=== PATIENT | female | born 1960 | race Caucasian/White ===

== ENCOUNTER 2019-08-28 08:41 | Outpatient (CLI) | payer OTHER, SELFPAY ==
--- NOTE | 2019-08-28 08:46 | MM_ITS ---
WS: [id number] SCREENING DIGITAL MAMMOGRAM WITH CAD HISTORY: SCREENING COMPARISON: 09/19/2018 and 09/27/2017 and 09/25/2016 Bilateral CC and MLO views submitted. Computer aided detection analyzed. Breast composition: There are scattered areas of fibroglandular density. No suspicious masses, microc alcifications or architectural distortion. MM/[id number] IMPRESSION: BI-RADS: 1-Negative FOLLOW UP: 1 Year Follow-up
== END 2019-08-28 08:42 | disposition home or self-care (01) ==
LOC: RADSHAW 08:41
PROVIDERS: Family Provider Family Medicine; PCP Family Medicine; Visit Provider Family Medicine
DX: Z12.31 Encounter for screening mammogram for malignant neoplasm of breast (principal)
CPT/HCPCS: 77067

== ENCOUNTER 2020-08-30 08:43 | Outpatient (CLI) | payer OTHER, SELFPAY ==
--- NOTE | 2020-08-30 08:48 | MM_ITS ---
WS: [id number] BILATERAL DIGITAL DIAGNOSTIC MAMMOGRAM MAMMOGRAPHY WITH CAD CLINICAL INFORMATION: SMALL MASS LT BREAST 0600 PEA SIZE MOBILE COMPARISON: August 28, 2019 TECHNIQUE: Bilateral CC, MLO, and ML views. FINDINGS: The breasts are composed of heterogeneous fibroglandular density, which can limit the detection of sm all underlying mass lesions. Palpable marker left breast. No definite underlying mammographic abnorma lities. Ultrasound is pending. Right breast is unchanged. ULTRASOUND BREAST LEFT TECHNIQUE: Ultrasound left breast focused area of concern. CLINICAL INFORMATION: SMALL MASS LT BREAST 0600 PEA SIZE MOBILE COMPARISON: None. FINDINGS: Ultrasound left breast the 6 clock position 2 cm from the nipple. Small complex cyst measuring 4.3 x 4.4 mm. This is probably benign. Recommend 6 month follow-up to confirm stability. No other suspiciou s lesions. MM/[id number] IMPRESSION: BI-RADS: 3-Probably Benign FOLLOW UP: 6 Month Follow-up RECOMMEND LEFT DIAGNOSTIC MAMMOGRAPHY WITH ULTRASOUND IN 6 MONTHS.
== END 2020-08-30 08:44 | disposition home or self-care (01) ==
PROVIDERS: PCP Family Medicine; Visit Provider Family Medicine
DX: N63.25 Unspecified lump in the left breast, overlapping quadrants (principal)
CPT/HCPCS: 76642; 77066

== ENCOUNTER 2021-03-28 07:48 | Outpatient (CLI) | payer OTHER, SELFPAY ==
--- NOTE | 2021-03-28 07:53 | MM_ITS ---
WS: [id number] LEFT DIGITAL MAMMOGRAPHY WITH CAD CLINICAL INFORMATION: 6 MO F/U LT BREAST LUMP HISTORY: Six-month follow-up COMPARISON: August 30, 2020 TECHNIQUE: 4 views of the left breast were obtained. FINDINGS: The left breast is composed of heterogeneous fibroglandular density tissue, which can limit the detec tion of small underlying mass lesions. No suspicious mammographic abnormalities. Ultrasound is pendin g. ULTRASOUND BREAST LEFT TECHNIQUE: Ultrasound left breast focused area of concern. CLINICAL INFORMATION: 6 MO F/U LT BREAST LUMP COMPARISON: August 30, 2020 FINDINGS: Ultrasound left breast the 6 clock position 2 cm nipple. Again seen is a small complex cyst or dilate d duct measuring 4.6 x 4.9 x 2.4 mm unchanged from August 30, 2020. This has a benign appearance an d recommend return to annual screening mammography. MM/[id number] IMPRESSION: BI-RADS: 2-Benign FOLLOW UP: 1 Year Follow-up Recommend return to annual screening mammography.
== END 2021-03-28 07:49 | disposition home or self-care (01) ==
PROVIDERS: PCP Family Medicine; Visit Provider Family Medicine
DX: N63.25 Unspecified lump in the left breast, overlapping quadrants (principal)
CPT/HCPCS: 76642; 77065

== ENCOUNTER 2021-04-23 16:44 | Emergency (ER) | payer SELFPAY ==
[2021-04-23 16:49] VITALS: BP 161/82; PULSE 81; RESP 18; TEMP 36.7; O2SAT 98; BMI 25.8
--- NOTE | 2021-04-23 17:04 | ECG_ITS ---
[facility] Test Date: 2021-04-23 Pat Name: Carlee Robertson Department: Room: Gender: Female Floor Cleaner: : 1960 Requested By: Steven Monterroso Order Number: [id number] Kemi MD: Gabriel Adair M.D. Measurements Intervals Weiner Rate: 73 P: 38 SC: 176 QRS: 38 QRSD: 88 T: 72 QT: 413 QTc: 457 Interpretive Statements SINUS RHYTHM NONSPECIFIC T-WAVE ABNORMALITY No previous ECG available for comparison Electronically Signed On 04-23-2021 21:42:26 CDT by Gabriel Adair M.D. [id number]
--- NOTE | 2021-04-23 17:04 | CTR_ITS ---
PROCEDURE INFORMATION: Exam: CT Head Without Contrast Exam date and time: 04/23/2021 5:04 PM Age: 60 years old Clinical indication: Altered mental status/memory loss and dizziness; Confusion or disorientation TECHNIQUE: Imaging protocol: Computed tomography of the head without contrast. Radiation optimization: All CT scans at this facility use at least one of these dose optimization techniques: automated exposure control; mA and/or kV adjustment per patient size (includes targeted exams where dose is matched to clinical indication); or iterative reconstruction. COMPARISON: No relevant prior studies available. RADIATION DOSE METRICS: Total DLP (mGy-cm): 728.03 FINDINGS: Brain: There is moderate cortical atrophy. Low-density changes in the white matter are consistent with nonspecific small vessel chronic ischemic change. There is no intracranial mass, hemorrhage or edema. Cerebral ventricles: No ventriculomegaly. Paranasal sinuses: There is fluid and mucosal thickening in the left sphenoid sinus in keeping with some sphenoid sinus disease. Mastoid air cells: Visualized mastoid air cells are well aerated. Bones/joints: Unremarkable. No acute fracture. Soft tissues: Unremarkable. CT/CT head wo con* [id number] IMPRESSION: 1. Left sphenoid sinusitis. 2. Atrophy and chronic ischemic changes. 3. No acute intracranial finding. Radiation Dose CTDIVOL = (mGy): DLP = 728.03 (mGy-cm)
--- NOTE | 2021-04-23 17:37 | W.ED.NEUROSD ---
HPI - Neuro Symptoms/Deficit General: Chief Complaint: Dizziness Stated Complaint: Dizziness/Head Pressure/Sent From [facility] Time Seen by Provider: 04/23/21 17:13 History of Present Illness: HPI Narrative: Patient is a 60-year-old female comes to the ED with dizziness. Patient was seen at [facility] urgent care and was told to come to the ED for further evaluation. Around 4:00 this morning she woke up and felt dizzy. She describes the dizziness as feeling off balance and denies any room spinning. The dizziness comes in episodes. Currently here in the ED she does not have any dizziness. She does say for the past couple days she has been having some sinus pressure and headache. Currently she says she has a mild sinus pressure headache. Patient denies any neurological symptoms such as vision changes, weakness/numbness or tingling to extremities or face. Denies any chest pain, shortness of breath, fever, chills, abdominal pain, nausea/vomiting, bladder or bowel symptoms. Associated symptoms: Reports headache(s); Deny chest pain, nausea or vomiting Review of Systems Const: Denies: fever(s), chills or fatigue Eyes: Denies: change in vision or eye discomfort ENMT: Denies: throat pain, odynophagia, nasal discharge or nasal congestion Card: Denies: chest pain, palpitations, edema, swelling of feet/ankles, dyspnea on exertion or orthopnea Resp: Denies: dyspnea, productive cough or non-productive cough GI: Denies: abdominal pain, nausea, vomiting, diarrhea, constipation or hematochezia : Denies: flank pain, dysuria or hematuria Musc: Denies: neck pain, back pain or extremity swelling Skin/Breast: Denies: rash or new lesions Neuro: Reports: headache(s) and dizziness; Denies: numbness in extremities or weakness in extremities NIH stroke score NIHSS: Level Of Consciousness - 1a: 0 Level Of Consciousness Questions - 1b: Both Correct Level Of Consciousness Commands - 1c: Both Correct Best Gaze - 2: Normal Visual Delgado - 3: No Visual Loss Facial Palsy - 4: Normal Motor Arm Right - 5: No Drift Motor Arm Left - 5: No Drift Motor Leg Right - 6: No Drift Motor Leg Left - 6: No Drift Limb Ataxia - 7: Absent Sensory - 8: Normal Best Language - 9: No Aphasia Dysarthia - 10: Normal Extinction And Inattention - 11: 0 Score: Total Score: 0 Physical Exam Const: COMMON NORMALS: no acute distress, patient oriented x3, healthy appearing and alert GENERAL APPEARANCE: cooperative and comfortable HENMT: COMMON NORMALS: normocephalic HEAD & SCALP: normocephalic MOUTH: Normal oral and palatal mucosa present THROAT: posterior oropharynx normal and uvula midline Eye: COMMON NORMALS: Equal, round and reactive pupils present, EOMs intact bilaterally and normal visual delgado by confrontation GENERAL EYE: appearance normal, both eyes and all related structures PUPIL: Yes Equal, round and reactive pupils present Neck/C-Spine: COMMON NORMALS: supple GENERAL: Yes normal visual inspection Resp: COMMON NORMALS: normal respiratory effort, No retractions, No use of accessory muscles and clear to auscultation bilaterally AUSCULTATION: clear to auscultation bilaterally Cardio: COMMON NORMALS: regular rate, regular rhythm, S1 normal heart sound present, S2 normal heart sound present, No gallops present (Cardio), No clicks present (Cardio), No murmurs present (Cardio) and Peripheral pulses 2+ throughout RATE: regular rate RHYTHM: regular rhythm HEART SOUNDS: S1 normal heart sound present and S2 normal heart sound present PERIPHERAL PULSES: Peripheral pulses 2+ throughout GI: COMMON NORMALS: Normal to inspection, nondistended, normoactive bowel sounds present, Soft to palpation, non-tender and no masses PALPATION: Yes Soft to palpation : COMMON NORMALS: Yes no CVA tenderness BLADDER/KIDNEY EXAM: Yes no CVA tenderness Back/Pelvis: COMMON NORMALS: no CVA tenderness Extremity: COMMON NORMALS: normal to inspection Neuro: COMMON NORMALS: patient oriented x3, CN's II-XII intact bilaterally, moves all extremities, no focal motor deficits and no sensory deficits noted SENSORIUM/ORIENTATION: Yes alert SENSORY EXAM: Yes extremities (intact) MOTOR EXAM: 5/5 motor strength present throughout Skin: GENERAL SKIN EXAM: dry skin Course Vital Signs: Vital signs: Vital Signs Temperature 98.1 F 04/23/21 16:49 Pulse Rate 68 04/23/21 19:23 Respiratory Rate 22 H 04/23/21 19:23 Blood Pressure 150/83 04/23/21 19:23 Pulse Oximetry 97 04/23/21 19:23 MDM - Neuro Symptoms/Deficit MDM Narrative: Medical decision making narrative: Patient is a 60-year-old female who comes to the ED with episodes of dizziness and sinus pressure headache. Denies any chest pain or shortness of breath. Patient denies any neurological symptoms. Here in the ED she currently does not feel dizzy. NIHSS was 0. Exam of patient is benign and she appears healthy nontoxic and in no acute distress. Neuro exam showed no deficits. Vitals are stable. CBC is CMP remarkable. Troponin negative, EKG shows normal sinus rhythm with no ST segment elevation or depression seen. CT of head shows left sphenoid sinusitis but no other acute intracranial findings. Patient diagnosed with 6 sphenoid sinusitis which is likely the cause of her episodes of dizziness and her headache. She was discharged home with a prescription for Augmentin and meclizine. She was told to follow-up with her PCP 5 to 7 days for reevaluation. Return to ED precautions given. Patient understood and agree with plan. Lab Data: Attestation: I reviewed the patient's lab results. Labs: Lab Results 04/23/21 04/23/21 04/23/21 17:45 17:45 17:45 WBC 9.8 10^3/uL 10^3/ uL (4.0-10.0) RBC 3.65 10^6/uL L 10 ^6/uL (4.1-5.3) Hgb 11.9 g/dL g/dL (11.5-15.3) Hct 35.1 % L % (37.0-47.0) MCV 96.2 fl fl (81-99) MCH 32.6 pg pg (28.0-34.0) MCHC 33.9 g/dL g/dL (30.0-36.0) RDW 14.0 % % (12.1-15.1) Plt Count 315 10^3/cmm 10^3 /cmm (130-400) MPV 9.3 fL fL (7.4-10.4) Neut % (Auto) 61.3 % % Lymph % (Auto) 26.1 % % Trinity % (Auto) 8.3 % % Eos % (Auto) 3.2 % % Baso % (Auto) 0.8 % % Neut # (Auto) 6.03 10^3/uL 10^3 /uL (1.8-7.7) Lymph # (Auto) 2.6 10^3/uL 10^3/ uL (0.8-4.8) Trinity # (Auto) 0.8 10^3/uL 10^3/ uL (0.2-0.9) Eos # (Auto) 0.3 10^3/uL 10^3/ uL (0.0-0.8) Baso # (Auto) 0.1 10^3/uL 10^3/ uL (0.0-0.1) Nucleated RBC % (a uto) 0 % % Nucleated RBCs # 0.0 /100WBC /100W BC PT 12.20 SECONDS SEC ONDS (12.1-14.9) INR 0.87 (0.8-1.2) APTT 25.9 SECONDS SECO NDS (23.9-36.7) Sodium 138 mmol/L mmol/L (136-145) Potassium 3.4 mmol/L L mmol /L (3.5-5.1) Chloride 99 mmol/L mmol/L (98-107) Carbon Dioxide 28 mmol/L mmol/L (22-29) Anion Gap 14.4 (5-19) BUN 13 mg/dL mg/dL (8-23) Creatinine 0.8 mg/dL mg/dL (0.5-0.9) GFR Calculation 72.7 mL/min L mL/ min (90-130) Glucose 91 mg/dL mg/dL (65-115) Calculated Osmolal ity 286 mOsm/kg mOsm/ kg (285-295) Calcium 9.1 mg/dL mg/dL (8.5-10.5) Total Bilirubin 0.2 mg/dL mg/dL (0.15-1.2) AST 13 U/L U/L (0-32) ALT 13 U/L U/L (0-33) Alkaline Phosphata se 78 IU/L IU/L (35-105) Troponin T Gen 5 n g/L Total Protein 7.0 g/dL g/dL (6.6-8.7) Albumin 4.6 g/dL g/dL (3.5-5.2) Globulin 2.4 g/dL g/dL (1.3-4.6) Urine Color Urine Appearance Urine pH Ur Specific Gravit y Urine Protein Urine Glucose (UA) Urine Ketones Urine Blood Urine Nitrate Urine Bilirubin Urine Urobilinogen Ur Leukocyte Lizbeth ase Urine RBC Urine WBC Ur Squamous Epith Cells Amorphous Sediment Urine Bacteria 04/23/21 04/23/21 17:45 17:45 WBC RBC Hgb Hct MCV MCH MCHC RDW Plt Count MPV Neut % (Auto) Lymph % (Auto) Trinity % (Auto) Eos % (Auto) Baso % (Auto) Neut # (Auto) Lymph # (Auto) Trinity # (Auto) Eos # (Auto) Baso # (Auto) Nucleated RBC % (a uto) Nucleated RBCs # PT INR APTT Sodium Potassium Chloride Carbon Dioxide Anion Gap BUN Creatinine GFR Calculation Glucose Calculated Osmolal ity Calcium Total Bilirubin AST ALT Alkaline Phosphata se Troponin T Gen 5 n g/L 7 ng/L ng/L (0-10) Total Protein Albumin Globulin Urine Color Straw (Yellow) Urine Appearance Clear (CLEAR) Urine pH 6.5 (5-7) Ur Specific Gravit y 1.005 (1.005-1.030) Urine Protein Neg (Negative) Urine Glucose (UA) Norm (Normal) Urine Ketones Negative (Negative) Urine Blood 2+ H (Negative) Urine Nitrate Negative (Negative) Urine Bilirubin Neg (Negative) Urine Urobilinogen Norm mg/dL mg/dL (Negative) Ur Leukocyte Lizbeth ase Negative (Negative) Urine RBC 0-4 /hpf H /hpf (0-2) Urine WBC 0-4 /hpf H /hpf (0-5) Ur Squamous Epith Cells 0-4 /hpf H /hpf (0-5) Amorphous Sediment Not Reportable Urine Bacteria Trace /hpf /hpf (NONE) Imaging Data^: CT Head: Attestation: I personally reviewed and interpreted this imaging study as follows: Radiologist's impression: [address] [address] [address] Scan Report Signed Patient: Carlee Robertson Unit #: [id number] : 1960 Age/Sex: 60 / F ADM Date: 04/23/21 Loc: ER Room/Bed: Attending Dr: Ordering Provider/Ordering MD: Steven Monterroso MD Date of Service: 04/23/21 Procedure(s): CT head wo con* [id number] Accession Number(s): [id number] Report Number: [id number] PROCEDURE INFORMATION: Exam: CT Head Without Contrast Exam date and time: 04/23/2021 5:04 PM Age: 60 years old Clinical indication: Altered mental status/memory loss and dizziness; Confusion or disorientation TECHNIQUE: Imaging protocol: Computed tomography of the head without contrast. Radiation optimization: All CT scans at this facility use at least one of these dose optimization techniques: automated exposure control; mA and/or kV adjustment per patient size (includes targeted exams where dose is matched to clinical indication); or iterative reconstruction. COMPARISON: No relevant prior studies available. RADIATION DOSE METRICS: Total DLP (mGy-cm): 728.03 FINDINGS: Brain: There is moderate cortical atrophy. Low-density changes in the white matter are consistent with nonspecific small vessel chronic ischemic change. There is no intracranial mass, hemorrhage or edema. Cerebral ventricles: No ventriculomegaly. Paranasal sinuses: There is fluid and mucosal thickening in the left sphenoid sinus in keeping with some sphenoid sinus disease. Mastoid air cells: Visualized mastoid air cells are well aerated. Bones/joints: Unremarkable. No acute fracture. Soft tissues: Unremarkable. CT/CT head wo con* [id number] IMPRESSION: 1. Left sphenoid sinusitis. 2. Atrophy and chronic ischemic changes. 3. No acute intracranial finding. Radiation Dose CTDIVOL = (mGy): DLP = 728.03 (mGy-cm) Dictated By: Lonnie Guerrero Signed By: Lonnie Guerrero Signed Date/Time: 04/23/211742 DD/ 41 EKG Data^: EKG 1: Attestation: I personally reviewed and interpreted this EKG as follows: EKG interpretation date: 04/23/21 Interpretation: Sinus rhythm, 73 bpm, no ST segment elevation or depression seen. Discharge Plan Discharge Patient Disposition: Home Clinical Impression: Sphenoid sinusitis Qualifiers: Chronicity: acute Recurrence: non-recurrent Qualified Code(s): J01.30 - Acute sphenoidal sinusitis, unspecified Condition: Stable Prescriptions: New Augmentin 500-125 mg tablet 1 tab PO BID 10 Days Qty: 20 RF: 0 meclizine 25 mg tablet 25 mg PO BID PRN (Reason: dizziness) Qty: 20 RF: 0 Discharge Orders: Discharge ED (Routine); Ordered 04/23/21 Ordered By: Adalberto Milligan Referrals: Freeman Brumfield MD [Primary Care Provider] - Discharge Diet: Regular Discharge Activity: Increase activity as tolerated Patient Instructions: Sinusitis (ED) Activity Restrictions/Additional Instructions: Follow-up with medical provider as directed in 5 to 7 days for reevaluation. Take medications as prescribed. Take [id number] Tylenol or ibuprofen for any headaches or fevers. Make sure to drink plenty of fluids and stay hydrated. Return to the ER or your medical provider if condition worsens. Please read and understand discharge instructions. Thank you for choosing [facility] for your healthcare needs today. Please realize this is an emergency room and that we are providing you with a medical screening exam and this may not be complete and all inclusive of all the testing and or work up that you may need to determine your ailment or severity of your illness. It is very important that you follow up as instructed or that you return to the Emergency Department should you have concerns or if your condition changes or worsens in any way. Coding Level of Care Code ED Internship Coordinator for Chg Fwd Exam Comprehensive
[2021-04-23 17:51] LABS: Basophils # 0.1 10^3/uL (0.0-0.1); Basophils % 0.8 %; Eosinophils # 0.3 10^3/uL (0.0-0.8); Eosinophils % 3.2 %; Hematocrit 35.1 % (37.0-47.0); Hemoglobin 11.9 g/dL (11.5-15.3); Lymphocytes # 2.6 10^3/uL (0.8-4.8); Lymphocytes % 26.1 %; Mean Corpuscular HGB Conc 33.9 g/dL (30.0-36.0); Mean Corpuscular Hemoglobin 32.6 pg (28.0-34.0); Mean Corpuscular Volume 96.2 fl (81-99); Mean Platelet Volume 9.3 fL (7.4-10.4); Monocytes # 0.8 10^3/uL (0.2-0.9); Monocytes % 8.3 %; Neutrophils # 6.03 10^3/uL (1.8-7.7); Neutrophils % 61.3 %; Nucleated Red Blood Cells % 0 %; Platelet Count 315 10^3/cmm (130-400); Red Blood Count 3.65 10^6/uL (4.1-5.3); White Blood Count 9.8 10^3/uL (4.0-10.0)
[2021-04-23] MEDS: sodium chloride 0.9% 500 ML IV (17:54)
[2021-04-23 17:56] VITALS: BP 122/81; BP 146/90; BP 152/75; PULSE 75; PULSE 79; RESP 15; O2SAT 98
[2021-04-23 18:12] LABS: Alanine Aminotransferase 13 U/L (0-33); Albumin Level 4.6 g/dL (3.5-5.2); Alkaline Phosphatase 78 IU/L (35-105); Anion Gap 14.4 (5-19); Aspartate Amino Transferase 13 U/L (0-32); Blood Urea Nitrogen 13 mg/dL (8-23); Calcium 9.1 mg/dL (8.5-10.5); Carbon Dioxide 28 mmol/L (22-29); Chloride 99 mmol/L (98-107); Globulin 2.4 g/dL (1.3-4.6); Glomerular Filtration Rate 72.7 mL/min (90-130); Glucose 91 mg/dL (65-115); Osmolality Calculated 286 mOsm/kg (285-295); Potassium 3.4 mmol/L (3.5-5.1); Sodium 138 mmol/L (136-145); Total Bilirubin 0.2 mg/dL (0.15-1.2)
[2021-04-23 18:16] LABS: Troponin T (5th) Once 7 ng/L (0-10)
[2021-04-23 18:17] LABS: Glucose Urine UA Norm (Normal); Ketones Urine Negative (Negative); Protein Urine Neg (Negative); Specific Gravity, Urine 1.005 (1.005-1.030); Urine Appearance Clear (CLEAR); Urine Color Straw (Yellow); pH Urine 6.5 (5-7)
[2021-04-23 18:18] LABS: Add Urine Culture? No; Add Urine Microscopic? YES; Bacteria Urine TRACE /hpf; Bilirubin Urine Neg (Negative); Blood Urine 2+ (Negative); Leukocyte Esterase Urine Negative (Negative); Nitrate Urine Negative (Negative); RBC Urine 0-4 /hpf (0-2); Squamous Epithelial Cell Urine 0-4 /hpf (0-5); Urobilinogen Urine Norm (Negative); WBC Urine 0-4 /hpf (0-5)
[2021-04-23 18:21] LABS: INR 0.87 (0.8-1.2)
[2021-04-23 18:22] LABS: Partial Thromboplastin Time 25.9 SECONDS (23.9-36.7)
[2021-04-23 19:23] VITALS: BP 150/83; PULSE 68; RESP 22; O2SAT 97
[2021-04-23] MEDS: amoxicillin-clav 500-125 mg Tablet 1 TAB PO (19:23)
== END 2021-04-23 19:24 | disposition home or self-care (01) ==
PROVIDERS: Emergency Medicine; Emergency Provider Physician Assistant; PCP Family Medicine
DX: J01.30 Acute sphenoidal sinusitis, unspecified (principal)
CPT/HCPCS: 70450; 80053; 81001; 84484; 85025; 85610; 85730; 93005; 96360; 99284; J7040

== ENCOUNTER 2021-10-20 07:37 | Outpatient (CLI) | payer OTHER, SELFPAY ==
--- NOTE | 2021-10-20 07:46 | MM_ITS ---
WS: [id number] VIEWS: MLO and CC views both breasts. 3-D arianna symphysis also performed. Comparison made with prior exam of 08/30/2020. Findings: There was no sign of mass, architectural distortion or suspicious calcification in either breast. Sc attered fibroglandular densities MM/[place] [id number] Impression: BI-RADS: 2-Benign FOLLOW-UP: 1 Year Follow-up This mammogram was also analyzed by the Computer Aided Detection System R2 Imag e [employer]oration Driller.
== END 2021-10-20 07:38 | disposition home or self-care (01) ==
LOC: RADSHAW 07:39
PROVIDERS: PCP Family Medicine; Visit Provider Nurse Practitioner Family
DX: Z12.31 Encounter for screening mammogram for malignant neoplasm of breast (principal)
CPT/HCPCS: 77063; 77067

== ENCOUNTER 2022-10-20 08:06 | Outpatient (CLI) | payer OTHER, SELFPAY ==
--- NOTE | 2022-10-20 08:25 | MM_ITS ---
WS: [id number] BILATERAL SCREENING DIGITAL TOMOSYNTHESIS MAMMOGRAM WITH CAD HISTORY: SCREENING COMPARISON: 10/20/2021 and 08/30/2020 Bilateral CC and MLO views with tomosynthesis and synthetic mammography submitted. Computer aided det ection analyzed. Breast composition: There are scattered areas of fibroglandular density. No suspicious masses, microc alcifications or architectural distortion. MM/[place] [id number] IMPRESSION: BI-RADS: 1-Negative FOLLOW UP: 1 Year Follow-up
== END 2022-10-20 08:07 | disposition home or self-care (01) ==
LOC: RAD 08:07
PROVIDERS: PCP Family Medicine; Visit Provider Family Medicine
DX: Z12.31 Encounter for screening mammogram for malignant neoplasm of breast (principal)
CPT/HCPCS: 77063; 77067

== ENCOUNTER 2023-09-01 13:40 | Outpatient (CLI) | payer OTHER, SELFPAY ==
--- NOTE | 2023-09-01 13:45 | CT_ITS ---
WS: [id number] LDCT LUNG CANCER SCREENING TECHNIQUE: Noncontrast CT of the chest with coronal and sagittal reformatted images. CLINICAL INFORMATION: NICOTINE DEPENDENCE,CIGARETTES COMPARISON: None. DLP: 58.31 mGy.cm DIvol: Mean CTDIvol: 1.00 (mGy) All CT scans at [facility] use at least one of these dose optimization techniques: automat ed exposure control; mA and/or kV adjustment per patient size (includes targeted exams where dose is matched to clinical indication); or iterative reconstruction. FINDINGS: 6 mm ovoid nodule in the RIGHT fissure. Tiny noncalcified subpleural nodule LEFT upper lobe . Normal caliber thoracic aorta. Calcification. Coronary calcification. No mediastinal or hilar lymphad enopathy. No axillary lymphadenopathy. Adrenal glands are normal. Splenic granulomas. Normal GE junct ion. Fatty atrophy of the pancreas. Cholelithiasis. Gallbladder is contracted. Mild thoracic kyphosis . IMPRESSION: CT/CT lung screening [id number] LUNG-RADS: 2-Benign Appearance or Behavior FOLLOW UP: 12 Month: Continue annual screening with LDCT
== END 2023-09-01 13:41 | disposition home or self-care (01) ==
LOC: RAD 13:40
PROVIDERS: PCP Family Medicine; Visit Provider Family Medicine
DX: Z12.2 Encounter for screening for malignant neoplasm of respiratory organs (principal); F17.210 Nicotine dependence, cigarettes, uncomplicated
CPT/HCPCS: 71271

== ENCOUNTER 2023-10-29 08:19 | Outpatient (CLI) | payer MEDICARE, SELFPAY ==
--- NOTE | 2023-10-29 08:22 | MM_ITS ---
WS: [id number] SCREENING DIGITAL TOMOSYNTHESIS MAMMOGRAM WITH CAD HISTORY: SCREENING COMPARISON: 10/20/2022, 10/20/2021 and 03/28/2021 Bilateral CC and MLO with tomosynthesis views submitted. Synthetic mammography reviewed. Computer aid ed detection analyzed. Breast composition: There are scattered areas of fibroglandular density. No suspicious masses, microc alcifications or architectural distortion. IMPRESSION: MM/[place] [id number] BI-RADS: 1-Negative FOLLOW UP: 1 Year Follow-up
== END 2023-10-29 08:20 | disposition home or self-care (01) ==
LOC: RAD 08:20
PROVIDERS: PCP Family Medicine; Visit Provider Family Medicine
DX: Z12.31 Encounter for screening mammogram for malignant neoplasm of breast (principal)
CPT/HCPCS: 77063; 77067

== ENCOUNTER → 2024-06-18 14:50 | Outpatient (BNVA) | payer MEDICARE, SELFPAY | PROVIDERS: PCP Family Medicine | DX: R39.9 Unspecified symptoms and signs involving the genitourinary system (principal); N30.01 Acute cystitis with hematuria | CPT/HCPCS: 81000; 87086 ==

== ENCOUNTER 2024-10-26 10:09 | Outpatient (CLI) | payer BC, SELFPAY ==
--- NOTE | 2024-10-26 10:17 | MM_ITS ---
WS: [id number] BILATERAL SCREENING DIGITAL TOMOSYNTHESIS MAMMOGRAM WITH CAD HISTORY: SCREENING COMPARISON: 10/29/2023, 10/20/2022, Bilateral CC and MLO views with tomosynthesis and synthetic mammography submitted. Computer aided detection analyzed. Breast composition: There are scattered areas of fibroglandular density. No suspicious masses, microcalcifications or architectural distortion. MM/MM scr BI tomosynthesis [id number] IMPRESSION: BI-RADS: 1 - Negative. FOLLOW UP: 1 Year Follow-up
--- NOTE | 2024-10-26 10:17 | CT_ITS ---
WS: [id number] LDCT LUNG CANCER SCREENING HISTORY: NICOTINE DEPENDENCE,CIGARETTES TECHNIQUE: Axial imaging performed from the apices to 1 cm below the costophrenic angles. Coronal and sagittal reformats are submitted with axial MIP series. All CT scans at [facility] use at least one of these dose optimization techniques: automated exposure control; mA and/or kV adjustment per patient size (includes targeted exams where dose is matched to clinical indication); or iterative reconstruction. DLP: 65.97 mGy.cm DIvol: Mean CTDIvol: 1.10 (mGy) COMPARISON: 09/01/2023 Diagnostic quality: Satisfactory Lungs: Moderate pulmonary hyperexpansion. Mild pleural tenting at the lung apices. Bilateral perifissural nodules. Stable 6 mm far lateral RIGHT perifissural nodule measuring 5 mm. 2 nodules along the LEFT fissure measuring up to 6 mm. No suspicious mass or pulmonary nodule. No pneumonia. No endobronch ial lesions. Heart: Normal size heart with no pericardial effusion.. Other findings: Atherosclerosis aorta. Normal size pulmonary artery. No adenopathy identified. Mild increase in thoracic kyphosis. CT/CT lung screening [id number] IMPRESSION: LUNG-RADS: 2-Benign Appearance or Behavior FOLLOW UP: 12 Month: Continue annual screening with LDCT OTHER FINDINGS (S MODIFIER): None.
== END 2024-10-26 10:10 | disposition home or self-care (01) ==
LOC: RAD 10:10
PROVIDERS: PCP Family Medicine; Visit Provider Family Medicine
DX: Z12.31 Encounter for screening mammogram for malignant neoplasm of breast (principal); Z12.2 Encounter for screening for malignant neoplasm of respiratory organs; F17.210 Nicotine dependence, cigarettes, uncomplicated; R92.323 Mammographic fibroglandular density, bilateral breasts; R91.8 Other nonspecific abnormal finding of lung field; J98.4 Other disorders of lung; I70.0 Atherosclerosis of aorta; M40.294 Other kyphosis, thoracic region
CPT/HCPCS: 71271; 77063; 77067

== ENCOUNTER 2025-01-15 12:37 | Outpatient (CLI) | payer BC, SELFPAY ==
--- NOTE | 2025-01-15 12:42 | XR_ITS ---
WS: [id number] SCREENING DEXA SCAN [employer] CLINICAL INFORMATION: OSTEOPOROSIS COMPARISON: None. FINDINGS: The L1-L4 bone mineral density measures 0.893 g/cm2. This corresponds to a T score score of -2.4 and Z score of -1.0. Left femoral neck bone mineral density measures 0.925 g/cm2. This corresponds to a T score of -0.7 and Z score of 0.4. Right femoral neck bone mineral density measures 0.913 g/cm2. This corresponds to a T score -0.7of and Z score of 0.3. Mean femoral neck bone mineral density measures 0.919 g/cm2. This corresponds to a T score of -0.7 and Z score of 0.4. XR/XR DEXA axial skeleton* [id number] IMPRESSION: Osteopenia lumbar spine approaching osteoporosis. Normal bone mineralization fe moral necks. Patient's FRAX calculated 10 year probability for major osteoporotic fracture i s 9.6% and osteoporotic hip fracture is 1.9%.
== END 2025-01-15 12:38 | disposition home or self-care (01) ==
PROVIDERS: PCP Family Medicine; Visit Provider Family Medicine
DX: M81.0 Age-related osteoporosis without current pathological fracture (principal); M85.88 Other specified disorders of bone density and structure, other site
CPT/HCPCS: 77080

== ENCOUNTER 2025-04-23 10:32 | Oncology outpatient (recurring) (ONCR) | payer MEDICARE, SELFPAY ==
[2025-04-23 11:17] VITALS: BP 127/84; PULSE 91; RESP 18; TEMP 36.3; O2SAT 97
[2025-04-23] MEDS: [UNRECOGNIZED DRUG - REMARK] 351 MG IV (11:36)
[2025-04-23 12:15] VITALS: BP 129/84; PULSE 75; TEMP 36.9; O2SAT 96
== END 2025-04-24 23:59 | disposition home or self-care (01) ==
PROVIDERS: PCP Family Medicine; Visit Provider Family Medicine
DX: D50.9 Iron deficiency anemia, unspecified (principal); Z79.899 Other long term (current) drug therapy
CPT/HCPCS: 96365; Q0138

== ENCOUNTER → 2025-06-08 09:56 | Outpatient (BNVA) | payer MEDICARE, SELFPAY | PROVIDERS: PCP Family Medicine; Visit Provider Family Medicine | DX: E11.9 Type 2 diabetes mellitus without complications (principal); D50.9 Iron deficiency anemia, unspecified; D50.8 Other iron deficiency anemias; R53.83 Other fatigue | CPT/HCPCS: 80053; 82043; 82728; 83036; 83550; 84443; 85025 ==